=== PATIENT | male | born 1935 | race Caucasian/White ===

== ENCOUNTER → 2021-01-22 09:13 | Outpatient (CLI) | payer MEDICARE, OTHER ==
[2013-07-08 19:47] VITALS: BMI 39.2
--- NOTE | ~2021-01-22 | EC ---
PATIENT:PIPPA ALDANA DATE OF SERVICE: 01/22/21 SEX: M MEDICAL RECORD: [id number] DATE OF : 37 LOCATION:D.[facility] AGE OF PATIENT: 85 ADMISSION DATE: 01/22/21 REFERRING PHYSICIAN: INTERPRETING PHYSICIAN: NAEEM SUTHERLAND MD ECHOCARDIOGRAM REPORT ECHO CHARGES 4 ECHO COMPLETE Date: 01/22/21 CLINICAL DIAGNOSIS: CAD/HTN ASSESS EF AND MITRAL REGURG ECHOCARDIOGRAPHIC MEASUREMENTS (adult normal given) AC root (d.<3.7cm) 3.9 cm LV Septum d (<1.2 cm> 1.4 cm Valve Excursion 1.7 cm LV Septum (systole) 1.8 cm Left Atria (s.<4.0cm> 3.7 cm LVPW d(<1.2cm) 1.7 cm RV (d.<2.3cm) 4.4 cm LVPW (sytole) 1.9 cm LV diastole(<5.6CM) 5.8 cm MV E-F(>70mm/sec) cm LV systole 4.0 cm LVOT Diameter 1.9 cm MV exc.(>10mm) 1.5 cm Est.ejection fraction (50-75%) % DOPPLER: LVIT cm/sec A 110.0cm/sec E 64.0 cm/sec LA cm/sec RVSP 29 mmHg LVOT 104 cm/sec AOP1/2T m/s Asc. Ao 187 cm/sec RVOT 101 cm/sec RA cm/sec PA 159 cm/sec AV Gradient Peak 13.92mmHg AV Mean 7.30 mmHg AV Area 1.9 cm MV Gradient Peak 7.35 mmHg MV Mean 3.18 mmHg MV Area cm COMMENTS: Route Aide: 2 ALAYNA CURIEL Seismology Technical Officer: 3 Dr. Olson TAPE# PACS Pericardial Effusion N DATE OF SERVICE: Adequate 2D, color-flow imaging, spectral Doppler, and M-Mode. FINDINGS: LVH is present. LV internal dimension is normal. Wall motion is normal. EF is greater than or equal to 55%. Aortic valve is tricuspid. No evidence of stenosis by Doppler interrogation. Left atrium is normal at 3.7 cm. Mitral valve shows no prolapse. Trace MR. Right side is grossly normal. Mild TR. TRANSINT:[id number] Voice Confirmation ID: [id number] DOCUMENT ID: [id number] ECHOCARDIOGRAM REPORT [id number] PIPPA ALDANA GREGORY A MD CC: [id number] DICTATION DATE: 01/22/21 1531 FIRER MARINE: 01/22/21 2320 REG [place] [id number] [place] [id number]
[~2021-01-22 09:13] MED LIST: SYNTHROID175 MCG PO
== END | disposition home or self-care (01) ==
LOC: D.HCCECHO 09:13
PROVIDERS: ATTEND Internal Medicine Interventional Cardiology
DX: I25.10 Atherosclerotic heart disease of native coronary artery without angina pectoris (principal)